=== PATIENT | male | born 1955 | race Caucasian/White ===

== ENCOUNTER 2017-09-20 10:02 | Day surgery (SDC) | payer OTHER ==
[~2017-09-20 10:02] MED LIST: Cyclopentolate 1% Opth Drop 2 ML BOT FS SCH; Fluorouracil 100 MG, Enoxaparin Sodium 25 MG, EPINEPHrine 0.3 MG in Ophthalmic Irrigati... IVPB SCH; Phenylephrine 2.5% Ophth Soln 5 ML BOT FS SCH
[2017-09-20] MEDS ORDERED: Cyclopentolate 1% Opth Drop 2 ML BOT ONE (10:25)
[2017-09-20] MEDS ORDERED: Phenylephrine 2.5% Ophth Soln 5 ML BOT ONE (10:25)
[2017-09-20] MEDS ORDERED: Lidocaine 2% 10 ML INJ ONE (11:15)
[2017-09-20] MEDS ORDERED: PROPOFOL 20 ML ONE (11:15)
[2017-09-20] MEDS ORDERED: Fentanyl 100 MCG/2 ML VIAL ONE (11:15)
[2017-09-20] MEDS ORDERED: Midazolam HCl 2 mg/2 ml Vial ONE (11:15)
--- NOTE | 2017-09-20 13:07 | OP ---
DATE OF PROCEDURE: 09/20/2017 PREOPERATIVE DIAGNOSIS: Tractional retinal detachment, left eye. POSTOPERATIVE DIAGNOSIS: Tractional retinal detachment, left eye. PROCEDURE: Complex retinal detachment repair, left eye. SURGEON: Dr. J Luis Mary ANESTHESIA: Local with monitored anesthesia care. PROCEDURE IN DETAIL: The patient was identified in the preoperative holding area. [facility] the planned surgical procedure on the left eye been obtained. He was transported to the operative suite. Appropriate cardiopulmonary monitoring was established. Local anesthesia was o btained using retrobulbar and modified Van Lint lid block using 50:50 mixture of 4% lidocaine, 0.75% bupivacaine. The patient was prepped and draped in the usual sterile manner for ophthalmic surgery o n the left eye. Lid speculum was placed in the left eye. The 25-gauge trocars were placed in conjun ctiva and sclera supratemporally, inferotemporally, and supranasally. Infusion line was placed infer otemporally. Light pipe and vitreous cutter were inserted into the eye. Core vitrectomy was perform ed. Vitreus space was trimmed back 360 degrees using wide field viewing system. A very bolus retina l detachment was identified and choroidals were noted temporally. A temporal and superior break was identified. Subretinal fluid was drained through the posterior breaks and a posterior drain was crea erwin inferior to the nerve. Complete air fluid exchange was performed with 10 minutes being allowed f or fluid to drain posteriorly. A 360 laser was placed using endolaser delivery device. Fifteen perc ent perfluoropropane was infused into the eye. Trocars were removed. Superior sclerotomies were sut ured closed with 7-0 Vicryl suture. Retrobulbar Kenalog and subconjunctival Ancef were placed. Atro pine and antibiotic ointment were placed, and the eye was patched and shielded. The patient was take n to the postoperative recovery unit in good condition having suffered no immediate perioperative per iod. DISCHARGE INSTRUCTIONS: The patient was instructed to keep patch and shield on, avoid lifting or rashawn ding, position right side down and follow up in the morning with Dr. Mary.
[2017-09-20] MEDS ORDERED: PROPOFOL 200 MG/20 ML VIAL ONE (14:54)
== END 2017-09-20 13:30 | disposition home or self-care (01) ==
LOC: SDC 10:02
PROVIDERS: ATTEND Ophthalmology Retina Specialist
PROC: 08T53ZZ Resection of Left Vitreous, Percutaneous Approach (ICD-10-PCS; principal; 2017-09-20)
PROC: 3E0C3GC Introduction of Other Therapeutic Substance into Eye, Percutaneous Approach (ICD-10-PCS; principal; 2017-09-20)
DX: H33.42 Traction detachment of retina, left eye (principal); I10 Essential (primary) hypertension; Z88.0 Allergy status to penicillin
CPT/HCPCS: 67025; J0171; J1650; J2250; J2704; J3010; J9190